=== PATIENT | female | born 1980 | race Caucasian/White ===

== ENCOUNTER 2024-07-28 14:19 | Outpatient (CLI) | payer OTHER, SELFPAY ==
--- OUTSIDE RECORDS SUMMARY | 2024-07-28 14:27 | XMS_ITS | Clinical Summary ---
Author Organization [facility] Address [address] [place] [address] Care Team Providers Care Laborer Carpentry Dock Name Role Phone Erica Mcbride PA-C Primary Care Provider [phone]- [phone] Source Comments [facility],non-owned Affiliates and Associated Physician Practices is amultiple site organization consisting of ambulatory clinics and hospital sitesin [place], [place], [place] and [place]. This disclosure is being madepursuant to the Care Everywhere program and may not contain all information available regarding this patient. Last updated 17.[facility] Allergies Active Allergy Reactions Criticality Noted Date Comments Codeine Vomiting 04/03/2021 Medications * This document contains information received from the source organization and may not represent a complete record from that organization. * Be aware that medications may not be up to date on this document. Alwaysverify current medications with the patient. amphetamine-dex troamphetamine XR 24hr (Adderall XR) 20 MG capsuleIndicati ons:ADHD, hyperactive-imp ulsive type Take 1 (one) capsule by mouth every morning 30 capsule 5 Active amphetamine-dex troamphetamine XR 24hr (Adderall XR) 10 MG capsuleIndicati ons:ADHD, hyperactive-imp ulsive type Take 1 (one) capsule by mouth every morning 30 capsule 5 07/14/19 25 Discontinu ed(Dose Adjustment ) amphetamine-dex troamphetamine (Adderall) 10 MG tabletIndicatio ns:ADHD, hyperactive-imp ulsive type Take 1 (one) tablet by mouth Every morning and lunchtime 60 tablet 07/28/19 Discontinu ed(Dose Adjustment ) Active Problems No known active problems Resolved Problems Problem Noted Date Diagnosed Date Resolved Date High-risk 04/27/2013 07/17/19 care 04/27/2013 07/16/2024 Encounters * This document contains information received from the source organization and may not represent a complete record from that organization. Date Type Department Care Team Description 07/23/2024 1:20 PM CDT Office Visit [address] [phone] Erica Mcbride PA-C ADHD, hyperactive-impulsiv e type (Primary Dx); Intractable right heel pain 07/22/2024 Travel 07/01/2024 12:00 PM CDT Office Visit [address] [phone] Erica Mcbride PA-C ADHD, hyperactive-impulsiv e type (Primary Dx); Intractable right heel pain; Plantar fasciitis of right foot 07/01/[address] [address] Erica Mcbride PA-C General 06/30/2024 Travel 06/25/2024 Travel 05/11/2024 11:39 AM CDT - 05/11/2024 11:59 PM CDT Hospital Encounter [facility] - [address] [place] [address] Radha Schwab, RN ACLS-DIRECTOR OF SUPPLY CHAIN Discharge Disposition: Home or Self Care from Last 3 Months Immunizations Immunization Administration Dates Next Due CovBoulder Ionics primary monoval ent 12+ yr 0.3mL Purple cap 03/07/2021,06/20/2020,05/30/2020 HEP A VACCINE, ADULT 03/06/2001 INFLUENZA VACCINE, QUADR. (F LUZONE; FLULAVAL; FLUARIX; AFLURIA QUADRIVALENT; 6MO+), 0.5 ML (IIV4) 04/03/2021,01/17/2016 Family History Medical History Relation Name Comments Glaucoma Father Arthritis - Osteo Maternal Grandmother Cancer - Other Maternal Grandmother Cancer - Other Mother Hypertension Mother Migraine Mother Hypertension Paternal Grandmother Cancer - Breast Neg Hx Cancer - Ovarian Neg Hx Relation Name Status Comments Father Maternal Grandmother Mother Paternal Grandmother Social History Tobacco Use Types Packs/Day Years Used Date Smoking Tobacco: Every Day Cigarettes Smokeless Tobacco: Current Tobacco Cessation:Ready to Q uit: Not Asked; Counseling Given: Not Answered Alcohol Use Standard Drinks/Week Comments Yes 0 (1 standard drink = 0.6 oz pur e alcohol) 2x a mo PHQ-2 Answer Date Recorded Patient Health Questionnaire-2 Score 0 07/23/2024 Comments No Sex and Gender Information Value Date Recorded Sex Assigned at Female 01/06/2023 2:36 PM SIGNS AND DISPLAYS SALESPERSON Legal Sex Female 5:47 PM CDT Gender Identity Female 01/06/2023 2:36 PM SIGNS AND DISPLAYS SALESPERSON Sexual Orientation Not on file Last Filed Vital Signs Vital Sign Reading Time Taken Comments Blood Pressure 114/73 07/23/2024 1:09 PM CDT Pulse 83 07/23/2024 1:09 PM CDT Temperature 37 C (98.6 F) 07/23/2024 1:09 PM CDT Respiratory Rate 18 02/17/2023 1:46 PM SIGNS AND DISPLAYS SALESPERSON Oxygen Saturation 99% 07/23/2024 1:09 PM CDT Inhaled Oxygen Concentration - - Weight 64.3 kg (141 lb 12.8 oz) 07/23/2024 1:09 PM CDT Height 165.1 cm (5' 5) 07/11/2023 12:3 8 PM CDT Body Mass Index 23.6 07/11/2023 12:38 PM CDT Plan of Treatment Health Maintenance Due Date Last Done Comments COLOGUARD (AGES 45-75) - COLON CA SCREENING 1979 COLON MONITORING 1979 COLONOSCOPY - COLON CA SCREENING 1979 CT COLONOGRAPHY - COLON CA SCREENING 1979 Colorectal Cancer Screening 1979 FIT - COLON CA SCREENING 1979 FLEX SIG - COLON CA SCREENING 1979 LIPID TESTING 1979 DTAP/TDAP/TD VACCINES (1 - Tdap) 1998 HEPATITIS B VACCINE (1 of 3 - 19+ 3-dose series) 1998 PNEUMOCOCCAL VACCINE (1 of 2 - PCV) 1998 COVID-19 VACCINE ( - season) 2023 03/07/2021, 06/20/2020, 05/30/2020 INFLUENZA VACCINE (Season Ended) 2024 04/03/2021, 01/17/2016 MAMMOGRAM 05/11/2026 05/11/2024, 08/08/2022 PAP with HPV 07/10/2028 07/11/2023 ZOSTER VACCINE (1 of 2) 2029 DEPRESSION SCREENING Completed 07/01/2024, 07/11/2023, 07/23/2022, Additional history exists HEPATITIS C SCREENING Discontinued HIB VACCINE Aged Out No longer eligi ble based on patient's age to complete this topic HIV SCREENING Discontinued HPV VACCINE Aged Out No longer eligi ble based on patient's age to complete this topic MENINGOCOCCAL (Group B) VACCINE SHARED DECISION-MAKING Aged Out No longer eligible based on patient's age to complete this topic MENINGOCOCCAL GROUPS A/C/Y/W VACCINE Aged Out No longer eligible based on patient's age to complete this topic Procedures Procedure Name Priority Date/Time Associated Diagnosis Comments MAMMO BILAT SCREENING W YOVANNY Routine 05/11/2024 12:09 PM CDT Screening mammogram for breast cancer PAP IG LB +HPV APTIMA REFLEX 16,18/45 Routine 07/11/2023 12:00 AM CDT Cervical cancer screening from Last 3 Months or Most Recently Relevant to Health Maintenance Results * Mammo Bilat Screening W Yovanny (05/11/2024 12:09 PM CDT) Anatomical Region Laterality Modality Breast Bilateral Mammography 05/11/2024 12:5 0 PM CDT Narrative 05/11/2024 12:51 PM CDT FULL FIELD DIGITAL BILATERAL SCREENING MAMMOGRAMS WITH CAD AND 3-D TOMOSYNTHESIS DATE: 05/11/2024 12:10 PM PREVIOUS EXAM DATE/S (EVALUATED FOR COMPARISON): 08/08/2022 INDICATION: Screening TECHNIQUE: Bilateral craniocaudad (CC) and mediolateral oblique (MLO) views. Images were interpreted with the aid of CAD. 3-D tomosynthesis images were performed. TISSUE DENSITY: The breasts are heterogeneously dense, which may obscure small masses. Please correlate with physical examination. FINDINGS: No discrete abnormality. No significant interval change. ASSESSMENT: BI-RADS 1 - Negative RECOMMENDATIONS: Continued annual screening mammography The above findings should be correlated with physical examination. A relatively nonspecific study should not preclude additional evaluation if suspicious findings are present clinically. > Interpreting Provider: Russ Roy JR, MD on 05/11/2024 12:51 PM Radha Shcwab RN ACLS-DIRECTOR OF SUPPLY CHAIN MAMMO ORDERABLES Final Result * PAP IG LB +HPV APTIMA REFLEX 16,18/45 (07/11/2023 12:00 AM CDT) Diagnosis [facility] INSURANCE BILL Comment:NEGATIVE FOR INTRAEP ITHELIAL LESION OR MALIGNANCY. Specimen Adequacy [facility] INSURANCE BILL Comment:Satisfactory for fernanda luation. No endocervical component is identified. Clinician Provided ICD10 [facility] INSURANCE BILL Comment:Z12.4 Performed by [facility] INSURANCE BILL Comment:Kiet Jiménez totechnologist Comment . [facility] INSURANCE BILL Note [facility] INSURANCE BILL Comment: The Pap smear is a screening test designed to aid in the detection of premalignant and malignant conditions of the uterine cervix. It is not a diagnostic procedure and should not be used as the sole means of detecting cervical cancer. Both false-positive and false-negative reports do occur. . IGLBP CPT Code Automation [facility] INSURANCE BILL Comment: This liquid based ThinPrep(R) pap test was screened with the use of an image guided system. Human papillomavirus Aptima Negative Negative [facility] INSURANCE BILL Comment: This nucleic acid amplification test detects fourteen high-risk HPV types (16,18,31,33,35,39,45,51,52,56,58,59,66,68) without differentiation. HPV Genotype Reflexed [facility] INSURANCE BILL Comment:Criteria not met, HP V Genotype not performed. 07/11/2023 07/14/2023 Narrative [facility] INSURANCE BILL - 07/16/2023 3:10 PM CDT Source.............Cervix No. of containers..01 ThinPrep Vial Resulting Agency Comment Lab Testing performed at: [facility] [place] [id number] Radha Schwab RN ACLS-DIRECTOR OF SUPPLY CHAIN LAB - PATHOLOGY/CYTOLOG Y ORDERABLES Final Result [facility] INS[facility] BILL [address] [place] [address] from Last 3 Months or Most Recently Relevant to Health Maintenance Insurance [facility] Care Teams Laborer Carpentry Dock Relationship Specialty Start Date End Date Erica Mcbride PA-C [address] [place] [address] PCP - General Physician Director Of Community Services 07/01/24
--- OUTSIDE RECORDS SUMMARY | 2024-07-28 14:27 | XMS_ITS | Encounter Summary ---
Author Organization [facility] Address [address] [place] [address] Care Team Providers Care Assembly Line Leader Name Role Phone Radha Schwab GUY-CHEMIST PHYSICAL Primary Care Provider PcpMarleen Primary Care-Im/Fm-[facility] Primary Care Provider Unavailable Erica Mcbride PA-C Primary Care Provider +1- [phone] Reason for Visit * Reason Onset Date Comments General 03/18/2022 PT CX Encounter Details Date Type Department Care Team (Late st Contact Info) Description 03/18/[address] [facility] [address] [address] Alessandro Cole MD [address] [address] General (PT CX) Social History Tobacco Use Types Packs/Day Years Used Date Smoking Tobacco: Every Day Cigarettes Smokeless Tobacco: Current Alcohol Use Standard Drinks/Week Comments Yes 0 (1 standard drink = 0.6 oz pur e alcohol) 2x a mo PHQ-2 Answer Date Recorded PHQ2 TOTAL SCORE 2 07/27/2021 Comments No Sex and Gender Information Value Date Recorded Sex Assigned at Female 01/06/2023 2:36 PM MODEL MAKER PLASTIC Legal Sex Female 5:47 PM CDT Gender Identity Female 01/06/2023 2:36 PM MODEL MAKER PLASTIC Sexual Orientation Not on file documented as of this encounter Miscellaneous Notes * Telephone Encounter - Rosa Chavez - 03/18/2022 2:10 PM CST PT CALLED AND CX 03/19 CHRISS Galvan STARTED A NEW JOB, DECLINED TO R/S, AWARE OF WAIT TO GET BACK IN. L MAKER PLASTIC documented in this encounter Plan of Treatment Not on file documented as of this encounter Visit Diagnoses Not on filedocumented in this encounter Care Teams Assembly Line Leader Relationship Specialty Start Date End Date Radha Schwab APRN-CHEMIST PHYSICAL PCP - General Nurse Practitioner 04/03/21 05/09/24 Marleen Jacobo Primary Care-Im/Fm-Sd Dlae PCP - General 05/10/24 06/30/24 Erica Mcbride PA-C [address] [place] [address] PCP - General Physician Land Classifier 07/01/24 documented as of this encounter
--- NOTE | 2024-07-28 14:30 | ECG_ITS ---
Test Date: 2024-07-28 14:45:25 Measurements Intervals [place] Rate: 88 P: 56 ME: 158 QRS: 36 QRSD: 89 T: 35 QT: 328 QTc: 397 Interpretive Statements SINUS RHYTHM WITH SINUS ARRHYTHMIA WARNING: DATA QUALITY MAY AFFECT INTERPRETATION No previous ECG available for comparison Electronically Signed On 07-29-2024 15:11:13 CDT by Andres Fry M.D.
== END 2024-07-28 14:20 | disposition home or self-care (01) ==
LOC: ANHSURGERY 14:25
PROVIDERS: Visit Provider Surgery Plastic and Reconstructive Surgery
DX: I49.8 Other specified cardiac arrhythmias (principal); F17.210 Nicotine dependence, cigarettes, uncomplicated
CPT/HCPCS: 93005

== ENCOUNTER 2024-07-30 00:57 | Day surgery (SDC) | payer OTHER, SELFPAY ==
[2024-07-27 10:05] VITALS: BMI 23.1
--- NOTE | 2024-07-27 10:14 | PC.NURSE ---
Report to the Outpatient Waiting Room, entrance under the green pavilion located off [facility], at time _0600_ on date _[id number]_. Planned Procedure Time: _0730_.? Time changes happen often and if your time is changed the preop area will call you the afternoon before. - You and your visitor will be asked to self-screen and do not enter if you have any COVID symptoms. Please call surgeon if you need to reschedule. - A mask is optional within the hospital at this time. Patients may have clear liquids (water, carbonated beverages, clear teas, apple juice) until 3 hours prior to surgery with a maximum of 20 ounces. - No food from midnight until time of surgery and no smoking, or chewing tobacco (or any form of nicotine). No chewing gum, candy or mints. Take only the following medications with a SIP of water on the morning of surgery: ___None____ DO NOT STOP ANY OF YOUR OTHER PRESCRIPTION MEDICATIONS PRIOR TO SURGERY EXCEPT THE FOLLOWING Hold all vitamins and supplements for 3 days per anesthesiologist. Medications to discontinue per physician Date to take last dose Please no make-up, nail belizean, hairspray, perfume, deodorant, or body powder the day of surgery.? No jewelry (including any body piercings) or valuables the day of surgery, leave them at home.? Please take a shower or bath the night before, or the morning of, surgery with an antibacterial soap.? Wear comfortable, loose fitting clothing.? - Jewelry must be removed prior to entering the operating room.? Rings and piercings that are not removed may be cut off. - The hospital will not accept responsibility for valuables.? - Please leave all valuables, including medications, at home the day of surgery. If you are going home after surgery, a licensed class c truck driver must drive you home.? - NO public transportation without another adult if you receive anesthesia. - We recommend that an adult stay with you for 24 hours following discharge. - We also recommend that you do not drive, make important decision, drink alcoholic beverages, or take any drugs that were not prescribed by your health care provider for at least 24 hours after your discharge time. Follow any additional instructions given to you from your surgeon. Telephone instructions given to __Carrie___and asked if any additional questions and then verbalized understanding. Patient advised to call surgeon office or pre surgery nurse liaison [phone] if any additional questions.
[2024-07-30] VITALS (11 sets, daily range): BP systolic 109–137; BP diastolic 63–76; PULSE 67–83; RESP 10–20; TEMP 36.3–36.6; O2SAT 95–100
--- OUTSIDE RECORDS SUMMARY | 2024-07-30 01:01 | XMS_ITS | Clinical Summary ---
Author Organization [facility] Address [address] [place] [address] Care Team Providers Care Continuous Weld Pipe Mill Supervisor Name Role Phone Erica Mcbride PA-C Primary Care Provider [phone]- [phone] Source Comments [facility],non-owned Affiliates and Associated Physician Practices is amultiple site organization consisting of ambulatory clinics and hospital sitesin [place], [place], [place] and [place]. This disclosure is being madepursuant to the Care Everywhere program and may not contain all information available regarding this patient. Last updated 17.[facility] Allergies Active Allergy Reactions Criticality Noted Date [...] Description 07/23/2024 1:20 PM CDT Office Visit [address] [phone] Erica Mcbride PA-C ADHD, hyperactive-impulsiv e type (Primary Dx); Intractable right heel pain 07/22/2024 Travel 07/01/2024 12:00 PM CDT Office Visit [address] [phone] Erica Mcbride PA-C ADHD, hyperactive-impulsiv e type (Primary Dx); Intractable right heel pain; Plantar fasciitis of right foot 07/01/[address] [phone] Erica Mcbride PA-C General 06/30/2024 Travel 06/25/2024 Travel 05/11/2024 11:39 AM CDT - 05/11/2024 11:59 PM CDT Hospital Encounter [facility] - [address] [place] [address] Radha Schwab, EQUIPMENT TECH-IT INVESTMENT/PORTFOLIO MANAGER Discharge Disposition: Home or Self Care from Last 3 Months Immunizations Immunization Administration Dates Next Due CovAffectv primary monoval ent 12+ yr 0.3mL Purple [...] Sex Assigned at Female 01/06/2023 2:36 PM GOVERNMENT RELATIONS MANAGER Legal Sex Female 5:47 PM CDT Gender Identity Female 01/06/2023 2:36 PM GOVERNMENT RELATIONS MANAGER Sexual Orientation Not on file Last Filed Vital Signs Vital Sign Reading Time Taken Comments Blood Pressure 114/73 07/23/2024 1:09 PM CDT Pulse 83 07/23/2024 1:09 PM CDT Temperature 37 C (98.6 F) 07/23/2024 1:09 PM CDT Respiratory Rate 18 02/17/2023 1:46 PM GOVERNMENT RELATIONS MANAGER Oxygen Saturation 99% 07/23/2024 1:09 PM CDT [...] JR, MD on 05/11/2024 12:51 PM Radha Schwab EQUIPMENT TECH-IT INVESTMENT/PORTFOLIO MANAGER MAMMO ORDERABLES Final Result * PAP IG LB +HPV APTIMA REFLEX 16,18/45 (07/11/2023 12:00 AM CDT) Diagnosis [facility] INSURANCE BILL Comment:NEGATIVE FOR INTRAEP ITHELIAL LESION OR MALIGNANCY. Specimen Adequacy [facility] INSURANCE BILL Comment:Satisfactory for fernanda luation. No endocervical component is identified. Clinician Provided ICD10 [facility] INSURANCE BILL Comment:Z12.4 Performed by [facility] INSURANCE BILL Comment:Kiet Jiménez totechnologist Comment . [...] Resulting Agency Comment Lab Testing performed at: [facility] [place] [id number] Radha Schwab EQUIPMENT TECH-IT INVESTMENT/PORTFOLIO MANAGER LAB - PATHOLOGY/CYTOLOG Y ORDERABLES Final Result [facility] INSURANCE BILL [address] [place] [address] from Last 3 Months or Most Recently Relevant to Health Maintenance Insurance [facility] Care Teams Continuous Weld Pipe Mill Supervisor Relationship Specialty Start Date End Date Erica Mcbride PA-C [address] [place] [address] PCP - General Physician Neon Sign Erector 07/01/24
--- OUTSIDE RECORDS SUMMARY | 2024-07-30 01:01 | XMS_ITS | Encounter Summary ---
Author Organization [facility] Address [address] [place] [address] Care Team Providers Care Farmworker Grain Name Role Phone Radha Schwab GUY-CERTIFIED MASTER SAFE TECHNICIAN Primary Care Provider PcpMarleen Primary Care-Im/Fm-[facility] Primary Care Provider Unavailable Erica Mcbride PA-C Primary Care Provider +1- [phone] Reason for Visit * Reason Onset Date Comments General 03/18/2022 PT CX Encounter Details Date Type Department Care Team (Late st Contact Info) Description 03/18/2022 Telephone [facility] [address] [address] Alessandro Cole MD [address] [address] General (PT CX) Social History [...] Sex Assigned at Female 01/06/2023 2:36 PM NET PROGRAMMER Legal Sex Female 5:47 PM CDT Gender Identity Female 01/06/2023 2:36 PM NET PROGRAMMER Sexual Orientation Not on file documented as of this encounter Miscellaneous Notes * Telephone Encounter - Rosa Chavez - 03/18/2022 2:10 PM CST PT CALLED AND CX 03/19 CHRISS Galvan STARTED A NEW JOB, DECLINED TO R/S, AWARE OF WAIT TO GET BACK IN. PROGRAMMER documented in this encounter Plan of Treatment Not on file documented as of this encounter Visit Diagnoses Not on filedocumented in this encounter Care Teams Farmworker Grain Relationship Specialty Start Date End Date Radha Schwab APRN-CERTIFIED MASTER SAFE TECHNICIAN PCP - General Nurse Practitioner 04/03/21 05/09/24 Marleen Jacobo Primary Care-Im/Fm-[place] PCP - General 05/10/24 06/30/24 Erica Mcbride PA-C [address] [place] [address] PCP - General Physician Care Team Coordinator Scheduler 07/01/24 documented as of this encounter
[2024-07-30 06:27] LABS: Urine Cotinine NEGATIVE
--- NOTE | 2024-07-30 06:35 | P.PNAN_ITS ---
Anes - Initial Pre Proc Eval Procedure: Operation Date: 07/30/24 07:30 Proposed Procedures p Bilateral Breast Augmentation, - Carlos Kumar MD s Bilateral Breast Mastopexy - Carlos Kumar MD Date/Time: 07/30/24 06:35 Surgeon: Carlos Kumar MD Pre Op Diagnosis: micromastia, breast ptosis Patient Data Age: 44 Gender: F Height: 1.65 m Weight: 63.2 kg Allergies Allergy/AdvReac Type Severity Reaction Status Date / Time No Known Allergies Allergy Verified 07/27/24 10:04 Home Medications ?Medication ?Instructions ?Recorded ?Confirmed ?Type dextroamphetamine-amphetamine 10 10 mg PO DAILY 07/27/24 07/27/24 History mg tablet (Adderall) Laboratory Tests 07/30/24 05:57 Cotinine Negative Patient hx anesthesia problems: none Family hx anesthesia problems: none Results Review: All pre-operative results and documents have been reviewed as part of the pre- operative evaluation. [facility] Social History Social History (Updated 07/30/24 @ 06:41 by Dominguez Mary, ) Smoking packs per day: 1 Smoking cigarettes per day: 20.0 Years smoked: 26 Smoking pack-years: 26.00 Smoking status: Former smoker Tobacco type: cigarettes Smoking end date: 06/01/24 Alcohol intake: current Substance use type: marijuana Other substance usage details: daily Living arrangements: with family Spiritual care concerns: No Anes - Eval Final PreProcedure Day of Procedure 07/30/24 06:35 Patient weight: normal Heart: regular rate and rhythm Lungs: clear to auscultation Airway: Mallampati scale class II Neurological: alert and oriented Last oral intake: >/= 8 hours ASA classification: III Emergent: no Anesthetic plan: proceed Anesthesia type and monitoring: general LMA and standard monitoring Results Review: All pre-operative results and documents have been reviewed as part of the pre- operative evaluation. Informed Consent: The patient's anesthetic plan and its attendant risks and benefits were discussed with the patient/family/POA. Questions were solicited and answers provided to the satisfaction of the patient/family/POA.
[2024-07-30 06:54] LABS: BEDSIDEPREGUCG Negative (Negative)
[2024-07-30] MEDS: LACTATED RINGERS 1,000 ML 30 ML IV CONT ×2 (06:59→09:40)
--- NOTE | 2024-07-30 07:07 | WPDHPUPDATE1 ---
History and Physical Update Update Date/Time: 07/30/24 07:07 History and Physical has been reviewed, including an updated exam of the patient. There are NO changes in the patient's condition. Risks, benefits, and alternatives have been discussed and questions answered. Patient agrees to proceed with procedure.
--- NOTE | 2024-07-30 07:24 | W.PM.PROC2 ---
Procedure Note - Detailed Date of Procedure 07/30/24 Pre-op Diagnosis micromastia, breast ptosis Post-op Diagnosis Same Procedure Performed Bilateral augmentation mastopexy Surgeon Carlos Kumar MD Anesthesia General Findings Bilateral Inverted T Superior Pedicle Bilateral Mahogany Kwon SoftTouch 445cc Right: REF# [id number] SN [id number] Left: REF# [id number] SN [id number] Description of Procedure She is here today for bilateral breast augmentation mastopexy. Previously and again today the risks, benefits, alternatives were discussed in extensive detail. I wanted her to be very realistic about the risks involved as well as expectations. We discussed aftercare and what to monitor for. Made sure answered all of her questions to her satisfaction today and consent was obtained. Marked in the preoperative holding area with their verification. The patient was taken to the operating room placed supine on the operating table. Anesthesia was provided by anesthesiology. A surgical time-out was taken. She was prepped and draped in a standard sterile fashion. Tumescent was utilized laterally to provide field block Tegaderm nipple Loyd were placed. A 15 blade used to make an incision just superior to the inframammary fold leaving a cusp of de-epithelized tissue at the t junction. Dissection was continued until the chest wall as identified. I incised the pectoralis major along its inferior border and completely released the inferior border leaving the medial border intact. I created a subpectoral pocket in the appropriate dimensions based on our preoperative planning for the implant. I then copiously irrigated with saline solution and verified a strict hemostasis. Next the use a triple antibiotic and Betadine containing solution to irrigate the pocket. I washed my gloves with the triple antibiotic and Betadine solution. We washed the implant immediately upon opening it with this solution and only opened it when we needed it. I used implant funnel and no-touch technique. The implant was introduced into the pocket using the funnel. Having verified positioning of the implant this was closed using 2-0 PDS. I tailor tacked the breast into position. Placed her in a sitting position. Verified the nipple-areolar location based on preoperative planning as well as intraoperative observations and measurements in full agreement. Suction lipectomy was completed laterally with a 4mm karthik cannula. This was based on preoperative planning, intraoperative observation, and rolling pinch which was in full agreement. She was placed supine. I de-epithelialized the pedicle. I then removed the inferior central portion of the breast need making sure the implant was well protected. I elevated medial and lateral tissue flaps as well for planned closure. I closed along the IMF with 2-0 Stratafix. Along the vertical with 2-0 PDS. I closed around the areola with 3-0 strata fix. 3-0 Monocryl along the vertical. 3-0 Stratafix along the IMF. I finally closed everything with running subcuticular 4-0 Monocryl and tissue glue (with Brijjit's along vertical incision). Fluffs and surgical bra were placed. Estimated Blood Loss 20 Drains No Packing No Pathology None sent Complications No immediate complications Condition Stable Disposition PACU
[2024-07-30] MEDS: TRANEXAMIC ACID 1,000MG/ISO100 1,000 MG/100 ML BAG 200 MG IVPB (07:30)
[2024-07-30] MEDS: LACTATED RINGERS IRRIG 1,000 ML, LIDOCAINE 1% LOCAL INJ 50 ML, EPINEPHrine HCL INJ 1 MG... INFILTRATE (07:30)
[2024-07-30] MEDS: ceFAZolin 2 GM/D5W 50 ML 2 GM/50 ML BAG IVPB (07:30)
[2024-07-30] MEDS: NACL 0.9% IRRIG POUR BOTTLE 900 ML, GENTAMICIN SULFATE INJ 160 MG, ceFAZolin 2 GM, POVI... IRRIGATION (07:30)
[2024-07-30] MEDS: fentaNYL CITRATE INJ (*CRX) 100 MCG/2 ML VIAL 25 MCG IV PUSH ×8 (10:22→10:36)
[2024-07-30] MEDS: oxyCODONE HCL (*CRX) 5 MG TAB IR PO (11:14)
== END 2024-07-30 12:17 | disposition home or self-care (01) ==
PROVIDERS: Visit Provider Surgery Plastic and Reconstructive Surgery
PROC: (CPT 19325; principal; 2024-07-30 07:30)
PROC: (CPT 19316; 2024-07-30 07:30)
DX: Z41.1 Encounter for cosmetic surgery (principal); N64.82 Hypoplasia of breast; N64.81 Ptosis of breast; F12.90 Cannabis use, unspecified, uncomplicated; Z87.891 Personal history of nicotine dependence
CPT/HCPCS: 19325; 19316; 80307; A9270; J0171; J0690; J1100; J1171; J1200; J1580; J2003; J2250; J2405; J2704; J3010; J7120